=== PATIENT | female | born 1975 | race Caucasian/White ===

== ENCOUNTER → 2018-04-11 | Outpatient (CLI) | payer OTHER ==
[~2018-04-11] MED LIST: ALBUTEROL SULFATE 0.083% NEB 2.5 MG/3 ML AMPUL NEB ONE
--- NOTE | 2018-04-11 11:01 | Pulmonary Function Test ---
Pulmonary Function Test Date of Procedure:: 04/11/18 INDICATION:: Dyspnea Referring Provider: Dr. Saunders Stonemason Helper: Kendy Guevara JOB TRAINING SPECIALIST, HATCHERY WORKER - Report Spirometry: FVC 2.83 L 80% postbronchodilator 3.26 L 92% FEV1 1.95 L 67% postbronchodilator 2.30 L 79% FEV1/FVC % 69 postbronchodilator 71 predicted 84 FEF 25-75% 1.17 L 36% postbronchodilator 1.60 L 49% Total lung capacity 2.86 L 53% Vital capacity 2.83 L 80% Inspiratory capacity 1.92 L FRC N2 0.94 L 31% ERV 0.83 RV 0.04 2% RV/TLC % 1% predicted 33 Diffusion capacity 8.4 38% DLCO/VA 3.45 80% Study demonstrates moderate obstructive ventilatory defect with good response to bronchodilator therapy. Restrictive defect is noted as moderate ( restrictive defect may mask the degree of obstruction) no hyperinflation no air trapping. Severe decrease in diffusion capacity. Lung Volume: Total lung capacity 2.86 L 53% Vital capacity 2.83 L 80% Inspiratory capacity 1.92 L FRC N2 0.94 L 31% ERV 0.83 RV 0.04 2% RV/TLC % 1% predicted 33 Diffusion Capactity: Diffusion capacity 8.4 38% DLCO/VA 3.45 80% Impression: Study demonstrates moderate obstructive ventilatory defect with good response to bronchodilator therapy. Restrictive defect is noted as moderate ( restrictive defect may mask the degree of obstruction) no hyperinflation no air trapping. Severe decrease in diffusion capacity.
== END ==
LOC: RT 06:53
PROVIDERS: ATTEND Internal Medicine Clinical Cardiac Electrophysiology
DX: R06.02 Shortness of breath (principal)
CPT/HCPCS: 94060; 94727; 94729

== ENCOUNTER → 2018-04-18 | Outpatient (CLI) | payer OTHER ==
--- NOTE | 2018-04-18 18:54 | XCELERA REPORT ---
[address] [address] Transthoracic Echocardiogram Report Name: JEANINE HUBER Age: 43 yrs Gender: Female : 1975 Patient Status: Outpatient Patient Location: [facility] Study Date: 04/18/2018 11:29 AM Height: 66 in Weight: 143 lb BSA: 1.7 m2 Procedure: A complete two-dimensional transthoracic echocardiogram was performed (2D, M-mode, spectral and color flow Doppler). The study was technically adequate with some images being suboptimal in quality. Reason For Study: SOB Ordering Physician: LIYA MEJIA Performed By: Selina Crowley Interpretation Summary The left ventricular ejection fraction is normal. The left ventricle is grossly normal size. There is normal left ventricular wall thickness. LV diastolic function could not be adequately assessed. Wall motion cannot be accurately commented on, but no definite regional wall motion abnormalities noted. The right ventricle is grossly normal size. The right ventricular systolic function is normal. The right atrium is normal in size The left atrial size is normal. There is no mitral valve stenosis. There is a trace to mild amount of mitral regurgitation There is no aortic valve stenosis No aortic regurgitation is present. There is a trace to mild amount of tricuspid regurgitation Right ventricular systolic pressure is at the upper limits of normal The aortic root is not well visualized but is probably normal size. The inferior vena cava appeared normal and decreased > 50% with respiration (RAP 5-10 mmHg) There is no pericardial effusion. MMode/2D Measurements & Calculations RVDd: 2.5 cm LVIDd: 5.2 cm FS: 33.8 % Ao root diam: 2.8 cm IVSd: 0.79 cm LVIDs: 3.4 cm EDV(Teich): 127.7 ml LVPWd: 0.78 cm ESV(Teich): 48.2 ml Ao root area: 6.1 cm2 EF(Teich): 62.3 % LA dimension: 3.4 cm Doppler Measurements & Calculations MV E max jose: MV P1/2t max jose: Ao V2 max: LV V1 max P.2 cm/sec 104.1 cm/sec 137.8 cm/sec 6.5 mmHg MV A max jose: MV P1/2t: 48.7 msec Ao max PG: LV V1 max: 72.1 cm/sec 7.6 mmHg 127.8 cm/sec MV E/A: 1.4 MVA(P1/2t): 4.5 cm2 MV dec slope: 626.3 cm/sec2 MV dec time: 0.18 sec PA V2 max: PI end-d jose: TR max jose: 109.1 cm/sec 86.9 cm/sec 248.7 cm/sec PA max PG: TR max P.8 mmHg 24.7 mmHg Left Ventricle The left ventricle is grossly normal size. There is normal left ventricular wall thickness. The left ventricular ejection fraction is normal. LV diastolic function could not be adequately assessed. Wall motion cannot be accurately commented on, but no definite regional wall motion abnormalities noted. Right Ventricle The right ventricle is grossly normal size. There is normal right ventricular wall thickness. The right ventricular systolic function is normal. Atria The right atrium is normal in size. The left atrial size is normal. Interarterial septum not well visualized and not well dopplered. Cannot comment on ASD/PFO presence. Mitral Valve The mitral valve is grossly normal. There is no mitral valve stenosis. There is a trace to mild amount of mitral regurgitation. Aortic Valve The aortic valve is grossly normal. There is no aortic valve stenosis. No aortic regurgitation is present. Tricuspid Valve The tricuspid valve is not well visualized, but is grossly normal. There is no tricuspid stenosis. There is a trace to mild amount of tricuspid regurgitation. Right ventricular systolic pressure is at the upper limits of normal. Pulmonic Valve The pulmonic valve is not well visualized. Great Vessels The aortic root is not well visualized but is probably normal size. The inferior vena cava appeared normal and decreased > 50% with respiration (RAP 5-10 mmHg). Effusions There is no pericardial effusion. : LIYA MEJIA > Jaz Comer
== END ==
LOC: SP 10:50
PROVIDERS: ATTEND Internal Medicine Clinical Cardiac Electrophysiology
DX: M32.9 Systemic lupus erythematosus, unspecified (principal); R06.02 Shortness of breath; R05 Cough
CPT/HCPCS: 93306